=== PATIENT | male | born 1945 | race Caucasian/White ===

== ENCOUNTER 2018-02-08 07:28 | Emergency (ER) | payer OTHER ==
[~2018-02-08] VITALS: Ht 182.9 cm; Wt 110.2 kg
--- NOTE | 2018-02-08 07:30 | NUR ---
BIBRA 89 C/O NEAR SYNCOPAL EPISODE WHILE IN BATHROOM. HAS GENERALIZED WEAKNESS, UNABLE TO STAND ON OWN AT HOME. PATIENT HAD RECENT BARIATRIC SX. BS 309 IN FIELD. A/OX 3, BREATHING EVEN AND UNLABORED. NO SOB, NAD, VITALS STABLE. SAFETY AND COMFORT MEASURES IN PLACE. AWAITING MD ORDERS.
--- NOTE | 2018-02-08 07:52 | NUR ---
NEW IV STARTED ON RAC, 20G. BLOOD DRAWN AND SENT TO LAB.
[2018-02-08 08:07] LABS: BASOPHILS % (AUTO) 0.2 % (0.0-2.0); EOSINOPHILS % (AUTO) 0.7 % (0.0-6.0); HEMATOCRIT 32 % (39-51); HEMOGLOBIN 10.6 g/dL (13.5-17.5); LYMPHOCYTES # (AUTO) 0.6 /CMM (0.8-4.8); LYMPHOCYTES % (AUTO) 5.2 % (20.0-44.0); MEAN CORPUSCULAR HGB CONC 33 g/dl (31.0-36.0); MEAN CORPUSCULAR VOLUME 83 fL (80-96); MONOCYTES # (AUTO) 0.9 /CMM (0.1-1.30); MONOCYTES % (AUTO) 8.3 % (2.0-12.0); NEUTROPHILS % (AUTO) 85.6 % (43.0-81.0); PLATELET COUNT (AUTO) 230 /CMM (150-450); RDW COEFFICIENT OF VARIATION 15.4 (11.5-15.0); RED BLOOD CELL COUNT(AUTO) 3.86 MIL/uL (4.5-6.0); WHITE BLOOD COUNT (AUTO) 10.6 K/uL (4.3-11.0)
[2018-02-08 08:20] LABS: CALCIUM, SERUM 8.9 mg/dL (8.5-10.1); CARBON DIOXIDE 25 mmol/L (21-32); CHLORIDE 98 mmol/L (98-107); CREATININE 2.4 mg/dL (0.6-1.3); GLUCOSE 307 mg/dL (74-106); POTASSIUM 4.7 mmol/L (3.5-5.1); SODIUM SERUM 133 mmol/L (136-145); UREA NITROGEN, BLOOD 66 mg/dL (7-18)
[2018-02-08 08:25] LABS: TROPONIN I < 0.017 ng/mL (0.00-0.056)
[2018-02-08 08:34] LABS: INR 1.03 (0.87-1.13)
--- NOTE | 2018-02-08 08:44 | NUR ---
[facility]SPOKE WITH KIRILL MILLER, WILL HAVE GIVE US A CALL
--- NOTE | 2018-02-08 08:56 | NUR ---
PATIENT TAKEN TO CT VIA STRETCHER.
[2018-02-08] MEDS ORDERED: IV NS 0.9% 1,000 ML BAG IV ONE (09:00)
--- NOTE | 2018-02-08 09:08 | NUR ---
PATIENT RETURNED FROM CT IN STABLE CONDITION.
--- NOTE | 2018-02-08 11:08 | NUR ---
CALLED [facility], SPOKE WITH ALEX. STATING STILL WAITING ON ROOM TO BE ASSIGNED FOR PATIENT. [facility] WILL CALL BACK WITH TRANSFER CONFIRMATION WITH ALL INFORMATION.
--- NOTE | 2018-02-08 11:38 | NUR ---
[facility]OREEN [facility]VARENGA GIRLFRIEND CALLED AND LEFT CONTACT INFORMATION.
--- NOTE | 2018-02-08 11:55 | NUR ---
[facility] CALLED WITH TRANSFER INFORMATION PT WILL BE GOING TO [facility] [address] ANGUIANO NURSE CINDY RUSSELL [phone]
--- NOTE | 2018-02-08 12:14 | NUR ---
REPORT GIVEN TO ADRYAN MILLER FOR LARA UPON TRANSFER.
--- NOTE | 2018-02-08 12:57 | NUR ---
REPORT GIVEN TO PRPRUDENCE KIRK FOR TRANSFER TO [facility].
[2018-02-08 13:05] VITALS: BP 96/54
--- NOTE | 2018-02-08 13:07 | NUR ---
PATIENT TRANSPORTED TO [facility] VIA AMBULANCE. RN, ADRYAN TO PROVIDE LARA.
== END 2018-02-08 13:07 | disposition short-term general hospital (02) ==
LOC: ER 07:30
DX: R55 Syncope and collapse (principal); E11.9 Type 2 diabetes mellitus without complications; N28.9 Disorder of kidney and ureter, unspecified; Z79.4 Long term (current) use of insulin; Z98.84 Bariatric surgery status; Z91.030 Bee allergy status; Z88.8 Allergy status to other drugs, medicaments and biological substances
CPT/HCPCS: 36415; 70450; 71045; 80048; 82962; 84484; 85025; 85730; 93005; 96360; 99285; A4606; J7030; Z7610

== ENCOUNTER 2018-03-29 20:41 | Emergency (ER) | payer OTHER ==
[~2018-03-29] VITALS: Ht 177.8 cm; Wt 117.9 kg
--- NOTE | 2018-03-29 20:53 | NUR ---
ALPA MASSEY PATIENTS DAUGHTER CALLED WITH CONTACT [phone]
[2018-03-29] MEDS ORDERED: IV NS 0.9% 1,000 ML BAG IV ONE ×2 (21:00→22:00)
--- NOTE | 2018-03-29 21:24 | NUR ---
PT REC'D IVF ORDERED.
[2018-03-29 21:35] LABS: BASOPHILS # (AUTO) 0.1 /CMM (0.0-0.2); BASOPHILS % (AUTO) 0.8 % (0.0-2.0); CALCIUM, SERUM 8.1 mg/dL (8.5-10.1); CARBON DIOXIDE 30 mmol/L (21-32); CHLORIDE 101 mmol/L (98-107); CREATININE 1.5 mg/dL (0.6-1.3); EOSINOPHILS % (AUTO) 2.4 % (0.0-6.0); GLUCOSE 203 mg/dL (74-106); HEMATOCRIT 29 % (39-51); HEMOGLOBIN 10.4 g/dL (13.5-17.5); LYMPHOCYTES % (AUTO) 11.2 % (20.0-44.0); MEAN CORPUSCULAR HEMOGLOBIN 31 PG (26.0-33.0); MEAN CORPUSCULAR HGB CONC 37 g/dl (31.0-36.0); MEAN CORPUSCULAR VOLUME 86 fL (80-96); MONOCYTES # (AUTO) 0.9 /CMM (0.1-1.30); MONOCYTES % (AUTO) 9.2 % (2.0-12.0); NEUTROPHILS # (AUTO) 7.1 /CMM (1.8-8.9); NEUTROPHILS % (AUTO) 76.4 % (43.0-81.0); PLATELET COUNT (AUTO) 135 /CMM (150-450); POTASSIUM 4.4 mmol/L (3.5-5.1); RDW COEFFICIENT OF VARIATION 16.1 (11.5-15.0); RED BLOOD CELL COUNT(AUTO) 3.32 MIL/uL (4.5-6.0); SODIUM SERUM 136 mmol/L (136-145); UREA NITROGEN, BLOOD 43 mg/dL (7-18); WHITE BLOOD COUNT (AUTO) 9.3 K/uL (4.3-11.0)
--- NOTE | 2018-03-29 21:35 | NUR ---
DR. MELÉNDEZ STOPPED THE 3900 ML NS IVF BOLUS. DR MELÉNDEZ ONLY WANTS A LITER OF NS INFUSED. ALL FLUID STOPPED AND ONLY 1 LITER NS INFUSING INTO 20G RAC.
[2018-03-29 21:40] LABS: ALANINE AMINOTRANSFERASE 19 U/L (12-78); ALBUMIN 1.6 g/dL (3.4-5.0); ALKALINE PHOSPHATASE 157 U/L (46-116); ASPARTATE AMINOTRANSFERASE 21 U/L (15-37); BILIRUBIN,DIRECT 0.2 mg/dL (0.0-0.2); BILIRUBIN,TOTAL 0.5 mg/dL (0.2-1.0); TOTAL PROTEIN, SERUM 5.9 g/dL (6.4-8.2)
[2018-03-29 21:42] LABS: TROPONIN I < 0.017 ng/mL (0.00-0.056)
--- NOTE | 2018-03-29 21:44 | NUR ---
CALLED [facility] SPOKE WITH KIRILL, EXPECTING A CALL BACK FROM A [facility]
--- NOTE | 2018-03-29 22:09 | NUR ---
PT ACCEPTED TO [facility] ER BY DR WARNER. # FOR REPORT [phone]. ETA FOR [facility]SPORT [id number]
--- NOTE | 2018-03-29 22:17 | NUR ---
REPORT GIVEN TO PAUL CAIN AT [facility].
[2018-03-29 23:12] VITALS: BP 114/62
--- NOTE | 2018-03-29 23:13 | NUR ---
Note viji in EDM - 03/29/18 at 2323 by [facility] EMT'S ARRIVED FOR TRANSPORT TO [facility]. REPORT GIVEN. COPY OF CHART AND ALL IMAGING GIVEN TO FORMAL SERVICE WAITER. VSS. PT TRANSPORTED OUT WITH A STEDY GAIT.
--- NOTE | 2018-03-29 23:23 | NUR ---
REPORT GIVEN TO DAKSHA EMT. COPY OF ENTIRE CHART GIVEN TO EMT. DISK WITH IMAGING GIVEN. PT TO LEAVE VIA GURNEY TO [facility].
== END 2018-03-29 23:16 ==
LOC: ER 20:42
DX: E86.0 Dehydration (principal); R53.1 Weakness; D64.9 Anemia, unspecified; D69.6 Thrombocytopenia, unspecified; E11.9 Type 2 diabetes mellitus without complications; Z98.84 Bariatric surgery status; Z88.7 Allergy status to serum and vaccine; Z91.030 Bee allergy status
CPT/HCPCS: 36415; 71045-TC; 80048-TC; 80076-TC; 83605-TC; 84484-TC; 85025-TC; 85730-TC; 87040-TC; A4606; J7030; Z7610